=== PATIENT | male | born 1985 | race Caucasian/White ===

== ENCOUNTER 2018-05-30 10:02 | Emergency (ER) | payer OTHER ==
[~2018-05-30] VITALS: Ht 177.8 cm; Wt 101.6 kg
[2018-05-30] MEDS ORDERED: IV NORMAL SALINE 1000 ML BAG IV ONE (10:15)
[2018-05-30] MEDS ORDERED: LORAZEPAM 2 MG/1 ML VIAL IV ONE (10:30)
[2018-05-30 10:33] LABS: BASOPHILS % (AUTO) 0.2 % (0.0-2.0); EOSINOPHILS % (AUTO) 0.2 % (0.0-7.0); HEMATOCRIT 47.2 % (36.7-47.1); HEMOGLOBIN 16.1 g/dL (12.5-16.3); LYMPHOCYTES # (AUTO) 3.9 K/uL (20.0-40.0); LYMPHOCYTES % (AUTO) 40.2 % (20.5-51.5); MEAN CORPUSCULAR HEMOGLOBIN 30.7 uug (23.8-33.4); MEAN CORPUSCULAR HGB CONC 34 g/dL (32.5-36.3); MEAN CORPUSCULAR VOLUME 90.2 fL (73.0-96.2); MONOCYTES # (AUTO) 0.9 K/uL (2.0-10.0); MONOCYTES % (AUTO) 9.2 % (0.0-11.0); NEUTROPHILS # (AUTO) 4.9 K/uL (1.8-8.9); NEUTROPHILS % (AUTO) 50.2 % (38.5-71.5); PLATELET COUNT (AUTO) 240 K/uL (152-348); RED BLOOD CELL COUNT(AUTO) 5.24 MIL/uL (4.06-5.63); WHITE BLOOD COUNT (AUTO) 9.7 K/uL (3.6-10.2)
--- NOTE | 2018-05-30 10:33 | NUR ---
Pt is awake A/O x2, and verbally responsive. Remaines restless.
[2018-05-30 10:41] LABS: CREATININE 1.3 mg/dL (0.6-1.3); POTASSIUM 3.8 mmol/L (3.5-5.1)
--- NOTE | 2018-05-30 10:45 | NUR ---
PER PT'S MOTHER, PT HAD A HX OF SEIZURE X 1 IN [place]ILHO[place], WAS ON SEIZURE MEDS UNTIL HIS 16TH YRS OLD AND WAS SLOWLY TAPERED OFF AND DISCONTINUED BY .
[2018-05-30 10:47] LABS: BILIRUBIN,DIRECT 0.1 mg/dL (0.0-0.2); BILIRUBIN,TOTAL 0.5 mg/dL (0.2-1.0); TOTAL PROTEIN, SERUM 8.2 g/dL (6.4-8.2)
[2018-05-30 10:53] LABS: BAND % (MANUAL) 1 % (0-10); LYMPHOCYTES % (MANUAL) 44 % (20-40); METAMYELOCYTES % 1 % (0-1); MONOCYTES % (MANUAL) 6 % (2-10); NEUTROPHILS % (MANUAL) 45 % (42-75)
[2018-05-30 10:55] LABS: REACTIVE LYMPHOCYTES 3 % (0-0)
--- NOTE | 2018-05-30 10:57 | NUR ---
Pt out of ER for CT.
[2018-05-30] MEDS ORDERED: LEVETIRACETAM IV 1,000 MG in IV DEXTROSE 5% 100 ML IV ONE (11:00)
[2018-05-30] MEDS ORDERED: LEVETIRACETAM 500 MG/5 ML VIAL IV ONE (11:02)
[2018-05-30] MEDS ORDERED: ONDANSETRON IV *ER 4 MG/2 ML VIAL IV ONE (11:15)
[2018-05-30] MEDS ORDERED: MORPHINE SULFATE 4 MG/1 ML DISP.SYRIN IV ONE (11:15)
[2018-05-30] MEDS ORDERED: MORPHINE SULFATE 4 MG/1 ML DISP.SYRIN ONE (11:32)
[2018-05-30] MEDS ORDERED: ONDANSETRON 4 MG/2 ML VIAL ONE (11:32)
[2018-05-30] MEDS ORDERED: HYDROMORPHONE 1 MG/1 ML DISP.SYRIN IV ONE ×2 (12:15→17:30)
[2018-05-30] MEDS ORDERED: HYDROMORPHONE 1 MG/1 ML DISP.SYRIN ONE ×2 (12:23→17:27)
--- NOTE | 2018-05-30 12:37 | NUR ---
AMANDA RIVAS SPOKE TO DR VERDUZCO AT [facility].
--- NOTE | 2018-05-30 12:50 | NUR ---
PT OUT OF ER FOR C SPINE CT.
[2018-05-30] MEDS ORDERED: ETOMIDATE 20 MG/10 ML VIAL ONE (14:49)
[2018-05-30] MEDS ORDERED: FENTANYL CITRATE 100 MCG/2 ML AMPUL ONE ×2 (14:54→16:21)
[2018-05-30] MEDS ORDERED: ETOMIDATE 20 MG/10 ML VIAL IV ONE (15:00)
[2018-05-30] MEDS ORDERED: FENTANYL CITRATE 100 MCG/2 ML AMPUL IV ONE ×2 (15:00→16:15)
--- NOTE | 2018-05-30 16:18 | NUR ---
AMANDA RIVAS SPOKE TO DR KUMAR(ORTHO).
--- NOTE | 2018-05-30 17:10 | NUR ---
PT AWAKE AND SPEAKING W/ FAMILY. OK'S FOR HIM TO HAVE FLUIDS.
--- NOTE | 2018-05-30 17:57 | NUR ---
AMANDA RIVAS SPOKE TO [facility]. PER [facility] RIVAS PT [facility] BE [facility]ING [facility].
--- NOTE | 2018-05-30 18:24 | NUR ---
REPORT GIVEN TO AMANDA VAUGHN CHARGE NURSE AT [facility]. ALL RECORDS COPIED FOR PT, AND COPIES PROVIDED FOR FAMILY.
--- NOTE | 2018-05-30 19:46 | NUR ---
Patient Tranfers to [facility], Report given to EMT.
== END 2018-05-30 20:53 | disposition short-term general hospital (02) ==
LOC: ER 10:02
DX: G40.909 Epilepsy, unspecified, not intractable, without status epilepticus (principal); M24.312 Pathological dislocation of left shoulder, not elsewhere classified; M24.311 Pathological dislocation of right shoulder, not elsewhere classified
CPT/HCPCS: 23650; 36415; 70450; 71045; 72125; 73020 ×4; 80048; 80076; 82550; 85025; 85730; 93005; 96365; 96375; 96376; 99285; J1170 ×2; J1953; J2270; J2405; J3010 ×2; J3490; A4663; J7030